=== PATIENT | female | born 1950 | race Two or more races ===

== ENCOUNTER 2018-03-13 13:43 | Emergency (ER) | payer MEDICAID, OTHER ==
[~2018-03-13] VITALS: Ht 149.9 cm; Wt 54.4 kg
[2018-03-13 13:58] VITALS: BP 124/66
[2018-03-13 14:30] LABS: Basophils # (auto) 0 uL; Basophils % (auto) 0.6 % (0.0-2.0); Eosinophils # (auto) 0.1 uL; Eosinophils % (auto) 2.1 % (0.0-7.0); Hemoglobin 13.7 g/dL (12.2-16.2); Lymphocytes # (auto) 2.8 uL; Lymphocytes % (auto) 39.6 % (10.0-50.0); Mean Corpuscular Hemoglobin 29.7 pg (28.0-32.0); Mean Corpuscular Hgb Conc. 33.4 g/dL (32.0-36.0); Mean Corpuscular Volume 88.9 fL (80.0-100.0); Monocytes # (auto) 0.6 uL; Monocytes % (auto) 9.1 % (0.0-12.0); Neutrophils # (auto) 3.4 uL; Neutrophils % (auto) 48.6 % (37.0-80.0); Nucleated Red Blood Cells % 0.1 %; Platelet Count (auto) 197 10^3/uL (140-450); Red Blood Cells 4.61 10^6/uL (4.0-5.20); Red Cell Distribution Width 12.6 % (11.8-14.3); White Blood Cell 7.1 10^3/uL (4.4-10.8)
[2018-03-13] MEDS ORDERED: ASPirin 81 mg TAB PO ONE (14:30)
[2018-03-13 14:43] LABS: Albumin 3.7 g/dL (3.4-5.0); Anion Gap 2 (5-15); Blood Urea Nitrogen 16 mg/dL (7-18); Calcium 8.7 mg/dL (8.5-10.1); Carbon Dioxide 28 mmol/L (21-32); Chloride 112 mmol/L (98-107); Glucose 109 mg/dL (74-106); Sodium 142 mmol/L (136-145)
[2018-03-13 14:50] LABS: Alanine Aminotransferase 42 U/L (13-56); Alkaline Phosphatase 80 U/L (45-117); Aspartate Aminotransferase 32 U/L (15-37); BUN/Creatinine Ratio 28.6; Bilirubin, Total 0.4 mg/dL (0.2-1.0); GFR African American 139 mL/min; GFR Non-African American 115 mL/min; Total Protein 7.5 g/dL (6.4-8.2)
== END 2018-03-13 15:55 | disposition home or self-care (01) ==
LOC: ER 13:51
DX: F41.9 Anxiety disorder, unspecified (principal); I10 Essential (primary) hypertension; Z90.89 Acquired absence of other organs; Z95.1 Presence of aortocoronary bypass graft; Z95.0 Presence of cardiac pacemaker; Z88.0 Allergy status to penicillin; Z88.2 Allergy status to sulfonamides
CPT/HCPCS: 36415; 80053; 84484; 85025; 93005

== ENCOUNTER → 2021-12-22 | Outpatient (CLI) | payer MEDICAID, OTHER ==
[~2021-12-22] VITALS: Ht 149.9 cm; Wt 59.0 kg
[~2021-12-22] MED LIST: ADENOSINE 50 MG in GIVE UN-DILUTED 0 ML IV STA
[2021-12-22 10:12] VITALS: BP 152/71
== END | disposition home or self-care (01) ==
LOC: XYW 08:15
PROVIDERS: ATTEND Internal Medicine
DX: R07.9 Chest pain, unspecified (principal)
CPT/HCPCS: 78452; 93017; A9500; J0153

== ENCOUNTER 2022-03-31 06:55 | Day surgery (SDC) | payer OTHER ==
[2022-03-30 12:45] LABS: Basophils # (auto) 0.1 10 ^3/uL (0-0.2); Basophils % (auto) 0.9 % (0.0-2.0); Eosinophils # (auto) 0.2 10 ^3/uL (0-0.8); Eosinophils % (auto) 1.8 % (0.0-7.0); Hematocrit 42.1 % (36.0-46.0); Hemoglobin 14.3 g/dL (12.2-16.2); Lymphocytes # (auto) 3.8 10 ^3/uL (0.4-5.4); Mean Corpuscular Hemoglobin 31.4 pg (28.0-32.0); Mean Corpuscular Volume 92.3 fL (80.0-100.0); Monocytes # (auto) 0.7 10 ^3/uL (0-1.3); Monocytes % (auto) 6.3 % (0.0-12.0); Neutrophils # (auto) 5.8 10 ^3/uL (1.6-8.6); Red Blood Cells 4.56 10^6/uL (4.0-5.20); Red Cell Distribution Width 13.1 % (11.8-14.3); White Blood Cell 10.6 10^3/uL (4.4-10.8)
[2022-03-30 12:53] LABS: INR 0.96 (0.9-1.15); Partial Thromboplastin Time 27.9 sec (24.6-33.4)
[2022-03-30 13:26] LABS: Albumin 3.9 g/dL (3.4-5.0); Calcium 8.8 mg/dL (8.5-10.1); Potassium 4.4 mmol/L (3.5-5.1)
[2022-03-30 13:32] LABS: Bilirubin, Total 0.3 mg/dL (0.2-1.0); Total Protein 7.6 g/dL (6.4-8.2)
[~2022-03-31] VITALS: Ht 149.9 cm; Wt 59.0 kg
[2022-03-31] VITALS (11 sets, daily range): BP systolic 91–130; BP diastolic 42–67
[~2022-03-31 06:55] MED LIST changes: -ADENOSINE 50 MG in GIVE UN-DILUTED 0 ML IV STA; +CLIN150C8 PO; +DOCU100T15 PO; +LISI2.5T47 PO; +LOVA20TA4 PO; +METH10TA6 PO; +OMEP20TA PO; +PROP10TA57 PO
[2022-03-31] MEDS ORDERED: IODIXANOL 320MG/ML 100ML BTL IV ONE (07:42)
[2022-03-31] MEDS ORDERED: LIDOCAINE 2%HCL (LOCAL ANESTH.) INJ 10ml MDV ONE (07:42)
[2022-03-31] MEDS ORDERED: ANGIOMAX 250 MG VIAL IV ONE (09:30)
[2022-03-31] MEDS ORDERED: SODIUM CHL 0.9% 0 ML ONE (09:30)
[2022-03-31] MEDS ORDERED: MIDAZOLAM HCL 2MG/2ML 2ml VIAL (1mg/ml) ONE (09:30)
[2022-03-31] MEDS ORDERED: fentaNYL CITRATE 100 MCG/2 ML VL ONE (09:30)
[2022-03-31] MEDS ORDERED: ACETAMINOPHEN 500 MG TAB PO PRN (10:30)
[2022-03-31] MEDS ORDERED: KETOROLAC TROMETH 30 MG/ML 1ML VIAL IV ONE (13:15)
== END 2022-03-31 16:05 | disposition home or self-care (01) ==
LOC: CATH 06:55
PROVIDERS: ATTEND Internal Medicine
DX: I35.0 Nonrheumatic aortic (valve) stenosis (principal); Z20.822 Contact with and (suspected) exposure to COVID-19
CPT/HCPCS: 36415; 80053; 85025; 85610; 85730; 93460; C1751; C1760; C1769; C1894; J1644; J1885; J2001; J2250; J3010; J7030; Q9967; U0003; 99152; 99153

== ENCOUNTER → 2022-07-08 | Outpatient (CLI) | payer OTHER | END | disposition home or self-care (01) | LOC: XYW 07:25 | PROVIDERS: ATTEND Internal Medicine | DX: R93.1 Abnormal findings on diagnostic imaging of heart and coronary circulation (principal); R00.2 Palpitations | CPT/HCPCS: 93306 ==

== ENCOUNTER 2022-11-17 15:24 | Emergency (ER) | payer OTHER ==
[~2022-11-17] VITALS: Ht 149.9 cm; Wt 56.6 kg
[~2022-11-17 15:24] MED LIST changes: +CLIN150C18 PO; -CLIN150C8 PO; +METH-552 PO; -METH10TA6 PO; -PROP10TA57 PO; +PROP1TAB51 PO
[2022-11-17 15:40] VITALS: BP 124/50; RESP 18; O2SAT 96
[2022-11-17 17:12] LABS: Urine Bacteria NONE SEEN /hpf (None Seen); Urine Blood Negative /uL (Negative); Urine Clarity Clear (Clear); Urine Color Colorless (Yellow); Urine Protein, UAD Negative (Negative); Urine Specific Gravity 1.006 (1.001-1.035); Urine Urobilinogen Normal (Negative); Urine WBC 1 /hpf (0 - 5)
[2022-11-17 17:26] LABS: Basophils # (auto) 0.1 10 ^3/uL (0-0.2); Eosinophils # (auto) 0.2 10 ^3/uL (0-0.8); Eosinophils % (auto) 2.1 % (0.0-7.0); Hematocrit 40.9 % (36.0-46.0); Hemoglobin 13.5 g/dL (12.2-16.2); Lymphocytes % (auto) 37.9 % (10.0-50.0); Mean Corpuscular Hemoglobin 29.5 pg (28.0-32.0); Mean Corpuscular Hgb Conc. 32.9 g/dL (32.0-36.0); Mean Corpuscular Volume 89.7 fL (80.0-100.0); Monocytes # (auto) 0.7 10 ^3/uL (0-1.3); Monocytes % (auto) 6.4 % (0.0-12.0); Neutrophils # (auto) 5.5 10 ^3/uL (1.6-8.6); Neutrophils % (auto) 52.6 % (37.0-80.0); Nucleated Red Blood Cells % 0.2 %; Red Blood Cells 4.56 10^6/uL (4.0-5.20); Red Cell Distribution Width 14.1 % (11.8-14.3); White Blood Cell 10.5 10^3/uL (4.4-10.8)
[2022-11-17 18:19] LABS: Alanine Aminotransferase 19 U/L (7-40); Albumin 4.5 g/dL (3.2-4.8); Alkaline Phosphatase 93 U/L (46-116); Anion Gap 5.9 (5-15); Aspartate Aminotransferase < 8 U/L (13-40); BUN/Creatinine Ratio 22.9 (10.0-20.0); Blood Urea Nitrogen 16 mg/dL (9-23); Calcium 9.6 mg/dL (8.5-10.1); Carbon Dioxide 29.1 mmol/L (20-30); Chloride 107 mmol/L (98-107); Glucose 99 mg/dL (74-106); Potassium 4.8 mmol/L (3.5-5.1); Sodium 142 mmol/L (136-145)
[2022-11-17 18:20] LABS: Bilirubin, Total 0.3 mg/dL (0.2-1.0); Total Protein 7.4 g/dL (5.7-8.2)
[2022-11-17] MEDS ORDERED: TRAM50TA2 PO (19:46)
[2022-11-17 19:57] VITALS: PULSE 65
== END 2022-11-17 20:48 | disposition home or self-care (01) ==
LOC: ER 15:24
DX: N64.4 Mastodynia (principal); I10 Essential (primary) hypertension; Z90.49 Acquired absence of other specified parts of digestive tract; Z98.890 Other specified postprocedural states; Z88.0 Allergy status to penicillin; Z79.899 Other long term (current) drug therapy
CPT/HCPCS: 36415; 71045; 76642; 80053; 81001; 82962; 84484; 85025; 85379; 93005